=== PATIENT | female | born 1965 ===

== ENCOUNTER 2025-01-03 11:27 | Emergency (ER) | payer SELFPAY ==
[2025-01-03] MEDS ORDERED: Ketorolac Tromethamine 30 MG (1 mL) VIAL ONE (11:46)
[2025-01-03] MEDS ORDERED: Metoclopramide HCl 10 MG (2 mL) VIAL ONE (11:46)
[2025-01-03] MEDS ORDERED: diphenhydrAMINE 50 MG/ML VIAL ONE (11:46)
== END 2025-01-03 13:18 | disposition home or self-care (01) ==
LOC: ERS 11:27
DX: G89.29 Other chronic pain (principal); M54.50 Low back pain, unspecified; M25.571 Pain in right ankle and joints of right foot; M25.572 Pain in left ankle and joints of left foot; M06.9 Rheumatoid arthritis, unspecified; R51.9 Headache, unspecified; F17.210 Nicotine dependence, cigarettes, uncomplicated
CPT/HCPCS: 96374; 96375; J1200; J1885; J2765